=== PATIENT | male | born 1990 | race Caucasian/White ===

== ENCOUNTER 2017-09-19 06:38 | Day surgery (SDC) | payer MEDICAID ==
[2017-09-12 11:24] VITALS: BMI 45.9
[~2017-09-19 06:38] MED LIST: Lidocaine 2% w Epi 1:100,000 Inj IJ ONE; Oxymetazoline 0.05% Nasal Spray (30 ml) NS ONE; ceFAZolin IV 1 gm in Dextrose 0 GM/0 ML BAG IVPB ONE
[2017-09-19] MEDS ORDERED: ceFAZolin IV 1 gm in Dextrose 0 GM/0 ML BAG IVPB ONE ×2 (07:24→09:06)
[2017-09-19] MEDS ORDERED: Acetaminophen-Codeine 300/30 mg Tab PO PRN (08:08)
[2017-09-19] MEDS ORDERED: Dextrose 5%/0.45% NS 1,000 ML IV SCH (08:15)
[2017-09-19] MEDS ORDERED: Propofol 10 mg/ml Inj (20 ML) ONE ×2 (09:04→09:05)
--- NOTE | 2017-09-19 10:03 | CP.PCM.PN ---
Subjective - Date & Time of Evaluation Date of Evaluation: 09/19/17 Time of Evaluation: 10:03 - Subjective Subjective: patient could not be safely intubated by anesthesia. Therefore the case is cancelled. will send patient to tertiary care facility to have biopsy done. Objective - Vital Signs/Intake and Output Vital Signs (last 24 hours): Temp Pulse Resp BP Pulse Ox 98.2 F 90 18 133/82 97 09/19/17 06:45 09/19/17 06:45 09/19/17 06:45 09/19/17 06:45 09/19/17 06:45 - Medications Medications: Current Medications Acetaminophen/Codeine Phosphate (Tylenol/Codeine 300 Mg/30 Mg) 2 ea PO Q6 PRN PRN Reason: Pain, moderate (4-7) Dextrose/Sodium Chloride (Dextrose 5%/0.45% Ns 1000 Ml) 1,000 mls @ 100 mls/hr IV .Q10H LORE
[2017-09-19] MEDS ORDERED: Sodium Chloride 0.9% 500 ML IV ONE (10:10)
[2017-09-19] MEDS ORDERED: Dexamethasone 4 mg/1 ml IVP PRN (10:10)
[2017-09-19] MEDS ORDERED: Lactated Ringer's 500 ML IV ONE (10:10)
[2017-09-19] MEDS ORDERED: Racepinephrine 2.25% Inhal Soln 0.5 ML UD NEB PRN (10:10)
[2017-09-19 11:29] VITALS: PULSE 86; O2SAT 96
[2017-09-19 11:44] VITALS: BP 125/78; RESP 18; TEMP 97
[2017-09-19] MEDS ORDERED: Lactated Ringer's 1,000 ML IV PRN (11:53)
[2017-09-19] MEDS ORDERED: DiphenhydrAMINE 50 mg/ml Inj IM ONE (12:00)
--- NOTE | 2017-09-20 23:30 | CARD ---
APPROVED REPORT EKG Measurement Heart [id number] [place] [id number] <Conclusion> Normal sinus rhythm with sinus arrhythmia Incomplete right bundle branch block Abnormal ECG
== END 2017-09-19 13:16 | disposition home or self-care (01) ==
LOC: C.SDS 06:38
PROVIDERS: ATTEND Otolaryngology
DX: J34.89 Other specified disorders of nose and nasal sinuses (principal); Z53.09 Procedure and treatment not carried out because of other contraindication
CPT/HCPCS: 31899; 93005; J1200; J2704; J7030; J7040